=== PATIENT | female | born 2000 | race Caucasian/White ===

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

== ENCOUNTER 2020-03-29 17:57 | Emergency (ER) | payer BC, OTHER ==
--- NOTE | 2020-03-29 18:30 | ED Physician Documentation ---
History of Present Illness - Stated complaint Stated Complaint: LT ANKLE INJ - Chief complaint Chief Complaint: Trauma Ext - History obtained from History obtained from: Patient - Additonal information Additional information: 20-year-old woman, previously healthy presents with left ankle pain sudden onset at 8 AM after she twisted it and fell to the ground. Pain is aching constant mild/moderate, worsening since the time of injury, associated with swelling and worse with range of motion. Nonradiating. No sensory loss or weakness. She is ambulatory at present without difficulty. 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: None : None HEENT: Other Psych: Depression, Anxiety Musculoskeletal: None Derm: None - Past Surgical History Past Surgical History: No HEENT: Tonsil/Adenoidectomy - Present Medications Home Medications: Ambulatory Orders Medication Instructions Recorded Confirmed No Known Home Medications 03/29/20 03/29/20 - Allergies Allergies/Adverse Reactions: Allergies Allergy/AdvReac Type Severity Reaction Status Date / Time methadone Allergy Hives Verified 03/29/20 17:59 - Social History Does the pt smoke?: No Smoking Status: Never smoker Does the pt drink ETOH?: Yes Does the pt have substance abuse?: Yes - Immunizations Immunizations are current?: No - POLST Patient has POLST: No PD ED PE NORMAL - Vitals Vital signs reviewed: Yes - General General: Alert and oriented X 3, No acute distress - HEENT HEENT: Atraumatic, PERRL, EOMI - Derm Derm: Normal color, No rash, Other (+swelling to lateral malleolus) - Extremities Extremities: No deformity, Other (normal ROM L ankle. normal distal pulses and cap refill. normal sensation. mildly ttp of lateral malleolus. nontender to medial mall and 5th MT) - Neuro Neuro: No: No motor deficit, No sensory deficit Results - Vitals Vitals: Vital Signs - 24 hr 03/29/20 18:00 Temperature 36.9 C Heart Rate 112 H Respiratory 16 Rate Blood Pressure 130/74 O2 Saturation 98 Oxygen O2 Source Room air PD MEDICAL DECISION MAKING - ED course ED course: 20-year-old woman, previously healthy presents with left ankle pain that is low risk for fracture. Most likely that this is a mild sprain. Education given about conservative management at home. Will provide with crutches and a posterior splint and have her follow-up with orthopedics in 1 week if symptoms do not improve. Return precautions given. Departure - Departure Disposition: Home, Self Care Clinical Impression: Ankle pain, left Condition: Good Instructions: ED RICE Follow-Up: Dat Prather MD [Provider Admit Priv/Credential] - Comments: You have been seen in the emergency department for left ankle pain. Your x-rays do not show any obvious signs of fracture. It is likely that you have a mild sprain. Follow-up in orthopedics with 1 week if you do not have improvement in symptoms. Forms: Activity restrictions
--- NOTE | 2020-03-29 18:59 | XRAY Report ---
PROCEDURE: Ankle 3 View LT INDICATIONS: ankle pain TECHNIQUE: 3 views of the ankle were acquired. COMPARISON: None. FINDINGS: Bones: No fractures or dislocations. Ankle mortise is normally aligned. No suspicious bony lesions . Presumed bone island projects in the posterior calcaneus. Soft tissues: No tibiotalar joint effusion. Achilles tendon appears normal. IMPRESSION: Grossly unremarkable examination as above. If the patient's pain or other symptoms persi st, consider further evaluation with MRI. Reviewed by: Larry Beckett MD on 03/29/2020 6:58 PM PST Approved by: Larry Beckett MD on 03/29/2020 6:58 PM [facility] Station ID: [id number]
[2020-03-29 19:10] VITALS: BP 128/72
== END 2020-03-29 19:09 | disposition home or self-care (01) ==
LOC: ED 17:57
DX: M25.572 Pain in left ankle and joints of left foot (principal); X50.1XXA Overexertion from prolonged static or awkward postures, initial encounter; Y93.01 Activity, walking, marching and hiking
CPT/HCPCS: 99282; 99283

== ENCOUNTER 2020-05-02 08:07 | Outpatient (CLI) | payer BC, OTHER | END 2020-05-02 08:08 | disposition critical access hospital (66) | LOC: EMS 08:07 | PROVIDERS: ATTEND Emergency Medicine | DX: R40.20 Unspecified coma (principal) | CPT/HCPCS: A0425; A0427 ==

== ENCOUNTER 2020-05-02 08:23 | Observation (INO) | payer BC, OTHER ==
[2020-05-02] MEDS ORDERED: SODIUM CHLORIDE 0.9% 1,000 ML IV STA (08:30)
--- NOTE | 2020-05-02 08:30 | ED Physician Documentation ---
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 : None HEENT: Other Psych: Depression, Anxiety Musculoskeletal: None Derm: None - Past Surgical History Past Surgical History: No HEENT: Tonsil/Adenoidectomy - Present Medications Home Medications: Ambulatory Orders Medication Instructions Recorded Confirmed No Known Home Medications 03/29/20 03/29/20 - Allergies Allergies/Adverse Reactions: Allergies Allergy/AdvReac Type Severity Reaction Status Date / Time methadone Allergy Hives Verified 05/02/20 08:30 - Living Situation Living Situation: reports: With friend(s) Living Arrangement: reports: At home - Social History Does the pt smoke?: No Smoking Status: Never smoker Does the pt drink ETOH?: Yes Does the pt have substance abuse?: Yes - Immunizations Immunizations are current?: No - POLST Patient has POLST: No PD ED PE NORMAL - Vitals Vital signs reviewed: Yes - General General: Well developed/nourished. No: Alert and oriented X 3 (She is having spontaneous respirations. She opens her eyes to tactile stimulus but is not interactive. Does not follow commands. Eyes wide open with some nystagmus.) - HEENT HEENT: PERRL, EOMI (she is not following objects with gaze; has some rotary and twitching eye movements. ) - Neck Neck: Supple, no meningeal sign, No adenopathy - Cardiac Cardiac: No murmur. No: RRR (tachycardic but regular) - Respiratory Respiratory: Clear bilaterally - Abdomen Abdomen: Normal bowel sounds, Soft, Non distended, No organomegaly - Female Female : Deferred - Rectal Rectal: Deferred - Derm Derm: Normal color, Warm and dry - Extremities Extremities: No deformity, Normal ROM s pain, No edema - Neuro Neuro: No motor deficit (moving extremities without limitation. Nonpurposeful movements, leading to concern for IV safety. Side pads placed on gurney.), Normal speech Eye Opening: Spontaneous Motor: Withdraws to Pain Verbal: None GCS Score: 9 Results - Vitals Vitals: Vital Signs - 24 hr 05/02/20 05/02/20 05/02/20 08:30 09:04 09:30 Temperature 36.7 C Heart Rate 123 H 130 H 122 H Respiratory 16 25 H 21 Rate Blood Pressure 166/108 H 158/86 H 166/89 H O2 Saturation 98 99 96 05/02/20 05/02/20 10:00 10:30 Temperature Heart Rate 130 H 127 H Respiratory 24 25 H Rate Blood Pressure 162/94 H 153/92 H O2 Saturation 99 99 Oxygen O2 Source Nasal cannula Oxygen Flow Rate 2 - EKG (time done) 08:33 Rate: Rate (enter#) (127) Rhythm: Sinus tachycardia Emma: Normal Intervals: Normal NE QRS: Normal Ischemia: Normal ST segments, Non specific changes (laterally). No: ST elevation c/w ischemia, ST depression - Labs Labs: Laboratory Tests 05/02/20 05/02/20 05/02/20 08:43 08:43 08:43 WBC 7.9 RBC 4.57 Hgb 14.4 Hct 42.3 MCV 92.6 MCH 31.5 H MCHC 34.0 RDW 12.5 Plt Count 267 MPV 10.0 Neut # (Auto) 5.5 Lymph # (Auto) 1.7 Montgomery # (Auto) 0.6 Eos # (Auto) 0.0 Baso # (Auto) 0.0 Absolute Nucleated RBC 0.00 Nucleated RBC % 0.0 Sodium 144 Potassium 3.2 L Chloride 109 Carbon Dioxide 22 Anion Gap 13.0 BUN 11 Creatinine 0.7 Estimated GFR (MDRD) 107 Glucose 89 Calcium 9.0 Total Bilirubin 0.6 AST 23 ALT 19 Alkaline Phosphatase 67 Total Protein 7.5 Albumin 4.8 Globulin 2.7 Albumin/Globulin Ratio 1.8 Lipase 21 L TSH 3.19 Urine Color Urine Clarity Urine pH Ur Specific [place] Urine Protein Urine Glucose (UA) Urine Ketones Urine Occult Blood Urine Nitrite Urine Bilirubin Urine Urobilinogen Ur Leukocyte Esterase Ur Microscopic Review Urine Culture Comments Urine HCG, Qual Nasal Adenovirus (PCR) Nasal B. parapertussis DNA (PCR) Nasal Coronavir 229E PCR Nasal Coronavir HKU1 PCR Nasal Coronavir NL63 PCR Nasal Coronavir OC43 PCR Nasal Enterovir/Rhinovir PCR Nasal Influenza B PCR Nasal Influenza A PCR Nasal Parainfluen 1 PCR Nasal Parainfluen 2 PCR Nasal Parainfluen 3 PCR Nasal Parainfluen 4 PCR Nasal RSV (PCR) Nasal B.pertussis DNA PCR Nasal C.pneumoniae (PCR) Lam Human Metapneumo PCR Nasal M.pneumoniae (PCR) Nasal SARS-CoV-2 (PCR) Salicylates < 6.0 Urine Opiates Screen Ur Oxycodone Screen Urine Methadone Screen Ur Propoxyphene Screen Acetaminophen < 10 L Ur Barbiturates Screen Ur Tricyclics Screen Ur Phencyclidine Scrn Ur Amphetamine Screen U Methamphetamines Scrn U Benzodiazepines Scrn Urine Cocaine Screen U Cannabinoids Screen Ethyl Alcohol 227.9 05/02/20 05/02/20 08:48 09:12 WBC RBC Hgb Hct MCV MCH MCHC RDW Plt Count MPV Neut # (Auto) Lymph # (Auto) Montgomery # (Auto) Eos # (Auto) Baso # (Auto) Absolute Nucleated RBC Nucleated RBC % Sodium Potassium Chloride Carbon Dioxide Anion Gap BUN Creatinine Estimated GFR (MDRD) Glucose Calcium Total Bilirubin AST ALT Alkaline Phosphatase Total Protein Albumin Globulin Albumin/Globulin Ratio Lipase TSH Urine Color LT. YELLOW Urine Clarity CLEAR Urine pH 6.0 Ur Specific [place] >=1.030 H Urine Protein NEGATIVE Urine Glucose (UA) 500 H Urine Ketones NEGATIVE Urine Occult Blood TRACE-INTA Urine Nitrite NEGATIVE Urine Bilirubin NEGATIVE Urine Urobilinogen 0.2 (NORMAL) Ur Leukocyte Esterase NEGATIVE Ur Microscopic Review NOT INDICATED Urine Culture Comments NOT INDICATED Urine HCG, Qual NEGATIVE Nasal Adenovirus (PCR) NOT DETECTED Nasal B. parapertussis DNA (PCR) NOT DETECTED Nasal Coronavir 229E PCR NOT DETECTED Nasal Coronavir HKU1 PCR NOT DETECTED Nasal Coronavir NL63 PCR NOT DETECTED Nasal Coronavir OC43 PCR NOT DETECTED Nasal Enterovir/Rhinovir PCR NOT DETECTED Nasal Influenza B PCR NOT DETECTED Nasal Influenza A PCR NOT DETECTED Nasal Parainfluen 1 PCR NOT DETECTED Nasal Parainfluen 2 PCR NOT DETECTED Nasal Parainfluen 3 PCR NOT DETECTED Nasal Parainfluen 4 PCR NOT DETECTED Nasal RSV (PCR) NOT DETECTED Nasal B.pertussis DNA PCR NOT DETECTED Nasal C.pneumoniae (PCR) NOT DETECTED Lam Human Metapneumo PCR NOT DETECTED Nasal M.pneumoniae (PCR) NOT DETECTED Nasal SARS-CoV-2 (PCR) NOT DETECTED Salicylates Urine Opiates Screen NEGATIVE Ur Oxycodone Screen NEGATIVE Urine Methadone Screen NEGATIVE Ur Propoxyphene Screen NEGATIVE Acetaminophen Ur Barbiturates Screen NEGATIVE Ur Tricyclics Screen NEGATIVE Ur Phencyclidine Scrn NEGATIVE Ur Amphetamine Screen NEGATIVE U Methamphetamines Scrn NEGATIVE U Benzodiazepines Scrn NEGATIVE Urine Cocaine Screen NEGATIVE U Cannabinoids Screen POSITIVE H Ethyl Alcohol PD MEDICAL DECISION MAKING - ED course Complexity details: reviewed results, re-evaluated patient (Is still maintaining her airway. She is maintained data elevated head of bed position. She is less kinetic and seems to be calmer. She has been given just a small dose of Ativan.), considered differential, d/w health management consultant (ER nursing consulted with poison control who stated at least 8-hour treatment and observation. Since she is symptomatic to this degree its likely to be many hours to even a day or 2 for resolution.) ED course: Patient's airway ventilation and oxygenation remain stable. She does not seem at risk of respiratory failure at this point. She is still has significantly altered mentation consistent with the Benadryl overdose combine with alcohol. Anticipation would be a long time of at least likely 8 to 12 hours for improvement in this and may be longer. As such it is reasonable to have her in the hospital for further care and treatment. - Critical Care Time(min): 40 Time Includes: Direct patient care Data interpretation: Labs, Pulse ox, See progress note Procedures excluded from critical care time: EKG Departure - Departure Disposition: ED Place in Observation Clinical Impression: Alcohol intoxication Qualifiers: Complication of substance-induced condition: with unspecified complication Qualified Code(s): F10.929 - Alcohol use, unspecified with intoxication, unspecified Overdose of medication Qualifiers: Encounter type: initial encounter Injury intent: undetermined intent Qualified Code(s): T50.904A - Poisoning by unspecified drugs, medicaments and biological substances, undetermined, initial encounter Altered mental status Qualifiers: Altered mental status type: delirium Qualified Code(s): R41.0 - Disorientation, unspecified Anticholinergic syndrome Qualifiers: Encounter type: initial encounter Injury intent: undetermined intent Qualified Code(s): T44.3X4A - Poisoning by other parasympatholytics [anticholinergics and antimuscarinics] and spasmolytics, undetermined, initial encounter Condition: Stable Record reviewed to determine appropriate education?: Yes Discharge Date/Time: 05/02/20 11:27
[2020-05-02 08:46] LABS: BASOPHILS % (AUTO) 0.4 %; EOSINOPHILS % (AUTO) 0.3 %; HCT - HEMATOCRIT 42.3 % (37.0-47.0); HGB - HEMOGLOBIN 14.4 g/dL (12.0-16.0); LYMPHOCYTES # (AUTO) 1.7 10^3/uL (1.5-3.5); MEAN CORPUSCULAR HEMOGLOBIN 31.5 pg (27.0-31.0); MEAN CORPUSCULAR VOLUME 92.6 fL (81.0-99.0); MONOCYTES # (AUTO) 0.6 10^3/uL (0.0-1.0); MONOCYTES % (AUTO) 7.6 %; NEUTROPHILS # (AUTO) 5.5 10^3/uL (1.5-6.6); NEUTROPHILS % (AUTO) 70.3 %; PLT - PLATELET COUNT 267 10^3/uL (130-450); RED BLOOD COUNT 4.57 10^6/uL (4.20-5.40); RED CELL DISTRIBUTION WIDTH 12.5 % (12.0-15.0); WHITE BLOOD COUNT 7.9 x10^3/uL (4.8-10.8)
[2020-05-02 08:52] LABS: MUDS CUTOFF CONCENTRATIONS CUTOFF CONC BELOW:
[2020-05-02 08:56] LABS: BILIRUBIN,URINE NEGATIVE (NEGATIVE); GLUCOSE, URINE (UA) 500 mg/dL (NEGATIVE); KETONES,URINE (UA) NEGATIVE (NEGATIVE); LEUKOCYTE ESTERASE, URINE NEGATIVE (NEGATIVE); NITRITE,URINE NEGATIVE (NEGATIVE); OCCULT BLOOD,URINE TRACE-INTA (NEGATIVE); PROTEIN,URINE NEGATIVE (NEGATIVE); UROBILINOGEN,URINE 0.2 (NORMAL) E.U./dL (NORMAL)
[2020-05-02 08:58] LABS: CLARITY,URINE CLEAR (CLEAR); HCG UR QUAL NEGATIVE
[2020-05-02] MEDS ORDERED: LORazepam 2 MG/ML VIAL IVP STA (08:59)
[2020-05-02 09:04] LABS: ACETAMINOPHEN < 10 ug/mL (10-30); ALBUMIN 4.8 g/dL (3.2-5.5); ALBUMIN/GLOBULIN RATIO 1.8 (1.0-2.2); ALKALINE PHOSPHATASE 67 IU/L (42-121); ALT ALANINE AMINOTRANSFERASE 19 IU/L (10-60); AST ASPARTATE AMINOTRANSFERASE 23 IU/L (10-42); BILIRUBIN,TOTAL 0.6 mg/dL (0.2-1.0); BUN - BLOOD UREA NITROGEN 11 mg/dL (6-20); CARBON DIOXIDE - CO2 22 mmol/L (21-32); CHLORIDE 109 mmol/L (101-111); CREATININE 0.7 mg/dL (0.4-1.0); ETOH - ETHANOL 227.9 mg/dL; GFR - MDRD 107 (>89); GLUCOSE 89 mg/dL (70-100); LIPASE 21 U/L (22-51); POTASSIUM 3.2 mmol/L (3.5-5.0); SALICYLATE < 6.0 mg/dL; SODIUM 144 mmol/L (135-145); TOTAL PROTEIN 7.5 g/dL (6.7-8.2)
[2020-05-02 09:06] LABS: AMPHETAMINE SCREEN,URINE NEGATIVE (NEGATIVE); BARBITURATE SCREEN,UR NEGATIVE (NEGATIVE); BENZODIAZEPINES SCREEN, URINE NEGATIVE (NEGATIVE); COCAINE SCREEN URINE NEGATIVE (NEGATIVE); METHADONE SCREEN, URINE NEGATIVE (NEGATIVE); METHAMPHETAMINES SCREEN, URINE NEGATIVE (NEGATIVE); OPIATE SCREEN, URINE NEGATIVE (NEGATIVE); OXYCODONE SCREEN, URINE NEGATIVE (NEGATIVE); PROPOXYPHENE SCREEN, URINE NEGATIVE (NEGATIVE); THC CANNABINOID SCREEN, URINE POSITIVE (NEGATIVE); TRICYCLIC ANTIDEPRESSANT,URINE NEGATIVE (NEGATIVE)
[2020-05-02] MEDS ORDERED: LACTATED RINGERS 1,000 ML IV STA (09:38)
[2020-05-02 10:05] LABS: CORONAVIRUS 229E-RESP PCR NOT DETECTED; CORONAVIRUS HKU1-RESP PCR NOT DETECTED; CORONAVIRUS NL63-RESP PCR NOT DETECTED; CORONAVIRUS OC43-RESP PCR NOT DETECTED; HUMAN METAPNEUMOVIRUS NOT DETECTED; INFLUENZA A- RESP PCR PANEL NOT DETECTED; RHINOVIRUS/ENTEROVIRUS NOT DETECTED; SARS-CoV-2 -RESP PCR PANEL NOT DETECTED
[2020-05-02 10:06] LABS: B. PARAPERTUSSIS- RESP PCR PAN NOT DETECTED; B. PERTUSSIS- RESP PCR PANEL NOT DETECTED; C. PNEUMONIAE- RESP PCR PANEL NOT DETECTED; INFLUENZA B - RESP PCR PANEL NOT DETECTED; M. PNEUMONIAE- RESP PCR PANEL NOT DETECTED; PARAINFLUENZA VIRUS 1 NOT DETECTED; PARAINFLUENZA VIRUS 2 NOT DETECTED; PARAINFLUENZA VIRUS 3 NOT DETECTED; PARAINFLUENZA VIRUS 4 NOT DETECTED; RSV- RESP PCR PANEL NOT DETECTED
[2020-05-02] MEDS ORDERED: ONDANSETRON 4 MG/2 ML VIAL IVP PRN (10:36)
[2020-05-02] MEDS ORDERED: IBUPROFEN 400 MG TABLET PO PRN (10:36)
[2020-05-02] MEDS ORDERED: ONDANSETRON ODT 4 MG TABLET TL PRN (10:36)
[2020-05-02] MEDS ORDERED: SODIUM CHLORIDE FLUSH 0.9% 10 ML SYRINGE IVP PRN (10:36)
[2020-05-02] MEDS ORDERED: LACTATED RINGERS 1,000 ML IV SCH (11:00)
--- NOTE | 2020-05-02 12:35 | HISTORY & PHYSICAL EXAMINATION ---
Chief Complaint - Chief Complaint Chief Complaint: Benadryl Overdose History of Present Illness - Admitted From Admitted From:: ED - History Obtained From Records Reviewed: [facility] History obtained from: chart review Exam Limitations: Metabolic encephalopathy d/t anticholinergic effects of benadryl - History of Present Illness HPI Comment/Other: 20 year old female with unknown medical history but likely polycystic ovarian disease brought to the ED after friends called 911 when she would not wake up. They were reportedly drinking last night and she was last known normal when everyone went to bed. This morning her friends became concerned when she was found in the bathroom next to a bottle of almost empty Benadryl and would not wake up. Her BAL this morning was 233. It is unclear how much she drank or at what time she stopped drinking. On arrival to the ED she was somnolent but has become more awake. She is encephalopathic and not answering questions appropriately, not oriented to date or place. Unable to describe what happened but friends do not believe this was a suicide attempt. Pt was admitted under observation status per Poison Control, as it may take 1-2 days for the anticholinergic effects of the benadryl to clear from her system and the metabolic encephalopathy to clear. 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 Unclear employment. P rior records indicate she does not smoke tobacco products and has been drinking alcohol since at least 2014, unclear how much. Unclear if she has a hx of illicit drug use. Utox positive for Cannibus. - Substance History Use: Uses substance without health or social issues: Alcohol Abuse: Recurrent use of substance despite neg consequences: Alcohol (past records indicate hx alcohol abuse, unable to quantify with patient currently) - POLST Patient has POLST: No POLST Status: Full Code Meds/Allgy - Home Medications Home Medications: Ambulatory Orders Medication Instructions Recorded Confirmed No Known Home Medications 03/29/20 03/29/20 - Allergies Allergies/Adverse Reactions: Allergies Allergy/AdvReac Type Severity Reaction Status Date / Time methadone Allergy Hives Verified 05/02/20 08:30 Review of Systems - Other Findings Other Findings: Unable to obtain due to metabolic encephalopathy, altered mental status Prior Level of Functionality: Unable to obtain due to metabolic encephalopathy that will likely clear in 1-2 days; she is likely independent with iADLs and ADLS as she has been living independently with her friends per their report to the ED Exam - Vital Signs Reviewed Vital Signs: Yes Vital Signs: Vital Signs x48h Temp Pulse Resp BP Pulse Ox 05/02/20 11:24 36.5 C 134 H 32 H 165/90 H 98 05/02/20 11:00 132 H 28 H 146/100 H 99 05/02/20 10:30 127 H 25 H 153/92 H 99 05/02/20 10:00 130 H 24 162/94 H 99 05/02/20 09:30 122 H 21 166/89 H 96 05/02/20 09:04 130 H 25 H 158/86 H 99 05/02/20 08:30 36.7 C 123 H 16 166/108 H 98 - Physical Exam General Appearance: positive: Other (Obese woman. Restless, confused, whispering to herself while lying in bed) Eyes Bilateral: positive: No lid inflammation, Conjunctivae nml, No scleral icterus, Other (Dilated pupils bilaterally) ENT: positive: ENT inspection nml, No signs of dehydration, Other (hirsutism) Neck: positive: Nml inspection Respiratory: positive: Chest non-tender, No respiratory distress, Breath sounds nml Cardiovascular: positive: Regular rate & rhythm, No murmur, No gallop, Tachycardia Peripheral Pulses: positive: 2+ Abdomen: positive: Non-tender, No organomegaly, Nml bowel sounds, No distention Rectal: positive: Enlarged prostate Skin: positive: Color nml, No rash, Warm, Dry, Other (Tattoos on bilateral arms) Extremities: positive: Full ROM, Nml appearance, No pedal edema Neurologic/Psychiatric: positive: Disoriented to place, Disoriented to time, Other (whispering to herself, not answering questions appropriately) Sepsis Event Note (H) - Evaluation Current Stage of Sepsis: Ruled out Conclusion/Plan - Problem List (1) Overdose or poisoning by antihistamine or antiemetic drug Conclusion/Plan: Pt was found in the bathroom next to a near empty bottle of Benadryl after a night of drinking with friends. Exact quantity of Benadryl is unknown. Her friends do not believe this was a suicide attempt, we will assess when her metabolic encephalopathy clears. Poison Control recommended observation for at least 12 hours, however given the mixed use of the alcohol with the Benadryl it may take 1-2 days for the anticholinergic effects to clear from her system. Charcoal was not given in the ED due to concerns for her ability to protect her airway. She was admitted for observation while the medication clears. She is currently altered, disoriented and unable to answer ROS, hx, etc. 1. Telemetry 2. Non-violent restraints due to pulling at lines and fall risk, concern for her safety 3. IVF- D5 as she had a low glucose this morning Qualifiers: Encounter type: initial encounter Injury intent: undetermined intent Qualified Code(s): T45.0X4A - Poisoning by antiallergic and antiemetic drugs, undetermined, initial encounter (2) Metabolic encephalopathy Conclusion/Plan: Metabolic encephalopathy 2/2 anticholinergic effects of the Benadryl overdose. She is currently altered, disoriented, and at risk for falling and pulling lines. There is a sitter in her room and she is in non-violent restraints for her safety. These will be discontinued when her mental status clears and we can be assured of her safety. A message has been left with her parents' voicemail to follow up with her medical history, no return call received at this time. 1. 1:1 sitter for now 2. Non-violent restraints while fall and safety risk (3) Alcohol intoxication Conclusion/Plan: BAL this morning was 233. It is unclear at what time she stopped drinking or how much she drank. It is also unclear what she drank. On chart review she has been seen in the past for alcohol abuse in 2015, and EMR notes since indicate she continues to drink (though quantity unclear). Will have social work follow up when Pt is more clear and able to answer questions regarding the state of her use and if she has a desire to cut back or stop her drinking. It is unclear from the chart review if she has a hx of alcohol withdrawal, will have low threshhold for CIWA, though it may be difficult to tell if she is withdrawing from alcohol given that the anticholinergic effects of the Benadryl may mask this. 1. Social Work consult when appropriate 2. Seizure precautions - Lab Results Fish Bones: 05/02/20 08:43 05/02/20 08:43
[2020-05-02] MEDS: FOLIC ACID INJ 1 MG, THIAMINE INJ 100 MG, MAGNESIUM SULFATE 2 GM in SODIUM CHLORIDE 0.9... IV SCH (16:19)
[2020-05-02] MEDS: POTASSIUM CHLOR 10 MEQ/100 ML 10 MEQ/100 ML BAG IV SCH ×4 (16:35→20:25)
[2020-05-02] MEDS: SODIUM CHLORIDE FLUSH 0.9% 10 ML SYRINGE IVP SCH (17:38)
[2020-05-02] MEDS: LORazepam 2 MG/ML VIAL IVP PRN ×2 (19:32→22:21)
[2020-05-03] MEDS: LORazepam 2 MG/ML VIAL IVP PRN ×3 (00:27→05:08)
[2020-05-03] MEDS: SODIUM CHLORIDE FLUSH 0.9% 10 ML SYRINGE IVP SCH ×3 (00:31→17:08)
[2020-05-03 05:51] LABS: CALCIUM 8.8 mg/dL (8.5-10.3); CREATININE 0.7 mg/dL (0.4-1.0); POTASSIUM 3.6 mmol/L (3.5-5.0)
--- NOTE | 2020-05-03 10:11 | PROVIDER PROGRESS NOTE ---
Subjective - Prog Note Date Prog Note Date: 05/03/20 - Subjective Pt reports feeling: Improved Subjective: Slept well overnight, more oriented this morning. Knows where she is and why. Able to state the date. Still impulsive and startles easily. Denies pain, n/v. This is a discharge note; Pt rapidly recovered and was appropriate to discharge home this afternoon. After awaking near lunch time, she was A&O x4, slightly tremulous but reports this is baseline. VSS. Zhu removed, able to urinate appropriately. Showered. Tolerating regular diet, reports she is safe to return home. Objective - Vital Signs/Intake & Output Reviewed Vital Signs: Yes Vital Signs: Vital Signs x48h Temp Pulse Resp BP BP BP Pulse Ox 05/03/20 08:42 36.8 C 114 H 17 135/63 H 147/79 H 100 05/03/20 03:37 37.5 C 97 17 135/73 H 97 Intake & Output: Intake & Output 04/30/20 05/01/20 05/02/20 05/03/20 23:59 23:59 23:59 23:59 Intake Total 2400 1005.2 Output Total 1875 475 Balance 525 530.2 - Objective General Appearance: positive: Other (Obese female sleeping in bed, easily arousable though startles easily.) Eyes Bilateral: positive: Conjunctivae nml, No scleral icterus, Other (Pupils dilated bilaterally though improved from yesterday) ENT: positive: ENT inspection nml, No signs of dehydration, Other (hirsutism) Neck: positive: Nml inspection Respiratory: positive: Chest non-tender, No respiratory distress, Breath sounds nml Cardiovascular: positive: Regular rate & rhythm, Tachycardia Peripheral Pulses: 2+ Radial (R), 2+ Radial (L), 2+ Dorsalis pedis (R), 2+ Dorsalis pedis (L) Abdomen: positive: Non-tender, No organomegaly, Nml bowel sounds, No distention Skin: positive: Color nml, Other (tattoos on both arms) Extremities: positive: Non-tender, Full ROM, Nml appearance, No pedal edema Neurologic/Psychiatric: positive: Oriented x3, Other (impulsive, jerky movements) - Lab Results Fish Bones: 05/02/20 08:43 03/06/21 05:32 Other Labs: Lab Results x24hrs 05/03/20 Range/Units 05:32 Sodium 139 (135-145) mmol/L Potassium 3.6 (3.5-5.0) mmol/L Chloride 106 (101-111) mmol/L Carbon Dioxide 22 (21-32) mmol/L Anion Gap 11.0 (6-13) BUN 7 (6-20) mg/dL Creatinine 0.7 (0.4-1.0) mg/dL Estimated GFR (MDRD) 107 (>89) Glucose 77 (70-100) mg/dL Calcium 8.8 (8.5-10.3) mg/dL ABX Reporting Has patient been on IV antibiotics over the past 48 hours?: No Sepsis Event Note (H) - Evaluation Current Stage of Sepsis: Ruled out Assessment/Plan - Problem List (1) Overdose or poisoning by antihistamine or antiemetic drug Impression: Pt was found in the bathroom next to a near empty bottle of Benadryl after a night of drinking with friends. Exact quantity of Benadryl is unknown. Her friends do not believe this was a suicide attempt, we will assess when her metabolic encephalopathy clears. Poison Control recommended observation for at least 12 hours, however given the mixed use of the alcohol with the Benadryl it may take 1-2 days for the anticholinergic effects to clear from her system. Charcoal was not given in the ED due to concerns for her ability to protect her airway. She was admitted for observation while the medication clears. She is more oriented this morning, able to state where she is why. Tachycardic and slightly hypertensive, likely dry. Sinus rhythm on telemetry. Seen by social work, determined not to have suicidal ideation. 1. Stop Telemetry 2. Non-violent restraints due to pulling at lines and fall risk, concern for her safety; discontinued 3. Encourage fluids for tachycardia 4. IV ativan PRN agitation Q2H per poison control 5. Social work consult for evaluation of SI 6. Plan for discharge home after she urinates and tolerates a diet Qualifiers: Encounter type: initial encounter Injury intent: undetermined intent Qualified Code(s): T45.0X4A - Poisoning by antiallergic and antiemetic drugs, undetermined, initial encounter (2) Metabolic encephalopathy Impression: Resolved. Metabolic encephalopathy 2/2 anticholinergic effects of the Benadryl overdose. Her mentation has improved 1. 1:1 sitter discontinued 2. Non-violent restraints discontinued (3) Alcohol intoxication Impression: BAL on admission was 233. It is unclear at what time she stopped drinking or how much she drank. It is also unclear what she drank. On chart review she has been seen in the past for alcohol abuse in 2014, and EMR notes since indicate she continues to drink (though quantity unclear). Will have social work follow up when Pt is more clear and able to answer questions regarding the state of her use and if she has a desire to cut back or stop her drinking. It is unclear from the chart review if she has a hx of alcohol withdrawal, will have low threshhold for CIWA, though it may be difficult to tell if she is withdrawing from alcohol given that the anticholinergic effects of the Benadryl may mask this. IV Ativan ordered PRN Q2H agitation. 1. Social Work consult when appropriate 2. Seizure precautions Qualifiers: Complication of substance-induced condition: with unspecified complication Qualified Code(s): F10.929 - Alcohol use, unspecified with intoxication, unspecified
[2020-05-03] MEDS: FOLIC ACID INJ 1 MG, THIAMINE INJ 100 MG, MAGNESIUM SULFATE 2 GM in SODIUM CHLORIDE 0.9... IV SCH (14:41)
--- NOTE | 2020-05-03 17:23 | Discharge Plan ---
Discharge Plan Problem Reviewed?: Yes Disposition: Home, Self Care Condition: Stable Diet: Regular Activity Restrictions: Activity as Tolerated Shower Restrictions: No Driving Restrictions: No Health Concerns: You presented to the hospital with slurred speech, inability to walk, and is severe startle reflex. Your friends described you as drinking quite heavily with them. But within the space of 30 minutes to change from just being "normally drunk" to something else. They called an ambulance and they brought you to the hospital and we found you to have overdosed on Benadryl as well as having acute alcohol intoxication. Benadryl, and high doses, can cause severe heart arrhythmias. Poison control recommended an overnight stay to let the Benadryl get out of your system. They also recommended we watch your heart rhythm on telemetry. You gradually woke up. Your heart rhythm stayed normal. You are now stable to go home. Plan of Treatment: 1. You would like to return to work on Tuesday. Today is Tuesday. I will send you home with a note. 2. Do not drink anymore. At this point in your life, the alcohol abuse you hav e in addition to fatty liver can lead to cirrhosis. 3.. Consider seeing a therapist for short-term duration of counseling. Care Goals: To return to work, and resume normal activities No Smoking: If you smoke, Please STOP! Call for help.
--- NOTE | 2020-05-03 17:30 | PHARMACY PROGRESS NOTE ---
- Best Possible Medication History Admit Date and Time: 05/02/20 1036 Processed by: Pharmacy Medication History completed: Yes Patient Interview: Completed As the person ultimately responsible for medication therapy, providers are able to order a medication from an existing home medication list in [facility] via the "Reconcile Routine" prior to Confirmation of that medication by support merchandiser. Such practice is discouraged except when the physician, in their clinical chuy gment, deems that a medical need exists for a medication without regard to previous use.
[2020-05-03 20:28] VITALS: BP 124/69
== END 2020-05-03 20:45 | disposition home or self-care (01) ==
LOC: EDUNIT# → ED 08:23 → MS2 10:36
PROVIDERS: ADMIT Specialist; ATTEND Specialist
DX: T45.0X4A Poisoning by antiallergic and antiemetic drugs, undetermined, initial encounter (principal); F10.129 Alcohol abuse with intoxication, unspecified; Y90.7 Blood alcohol level of 200-239 mg/100 ml; G93.41 Metabolic encephalopathy; Z78.1 Physical restraint status; Z20.822 Contact with and (suspected) exposure to COVID-19; E66.9 Obesity, unspecified; Z68.34 Body mass index [BMI] 34.0-34.9, adult
CPT/HCPCS: 0202U; 36415; 51701; 80048; 80053; 80306; 80307; 80320; 80329; 81003; 81025; 83690; 84443; 85025; 93005; 96361; 96365; 96366; 96367; 96368; 96375; 96376; 99285; 99291; G0378; J2060; J3411; J7120; 81001; 87086

== ENCOUNTER 2020-09-01 05:34 | Outpatient (CLI) | payer BC, OTHER | END 2020-09-01 05:35 | disposition critical access hospital (66) | LOC: EMS 05:34 | DX: T42.4X2A Poisoning by benzodiazepines, intentional self-harm, initial encounter (principal) | CPT/HCPCS: A0425; A0427 ==

== ENCOUNTER 2020-09-01 05:48 | Emergency (ER) | payer BC, OTHER ==
[2020-09-01] MEDS ORDERED: CHARCOAL ACTIVATED 25 GM/120 ML BOTTLE PO STA (05:55)
[2020-09-01] MEDS ORDERED: SODIUM CHLORIDE 0.9% 1,000 ML IV STA (05:59)
[2020-09-01 06:14] LABS: BASOPHILS % (AUTO) 0.5 %; HCT - HEMATOCRIT 44.1 % (37.0-47.0); HGB - HEMOGLOBIN 15.1 g/dL (12.0-16.0); LYMPHOCYTES # (AUTO) 1.4 10^3/uL (1.5-3.5); LYMPHOCYTES % (AUTO) 21.6 %; MEAN CORPUSCULAR HEMOGLOBIN 31.1 pg (27.0-31.0); MEAN CORPUSCULAR HGB CONC 34.2 g/dL (32.0-36.0); MEAN CORPUSCULAR VOLUME 90.7 fL (81.0-99.0); MEAN PLATELET VOLUME 9.6 fL (7.9-10.8); MONOCYTES # (AUTO) 0.3 10^3/uL (0.0-1.0); MONOCYTES % (AUTO) 4.4 %; NEUTROPHILS # (AUTO) 4.8 10^3/uL (1.5-6.6); NEUTROPHILS % (AUTO) 73.3 %; PLT - PLATELET COUNT 315 10^3/uL (130-450); RED BLOOD COUNT 4.86 10^6/uL (4.20-5.40); RED CELL DISTRIBUTION WIDTH 12.7 % (12.0-15.0); WHITE BLOOD COUNT 6.5 x10^3/uL (4.8-10.8)
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
[2020-09-01 06:26] LABS: MUDS CUTOFF CONCENTRATIONS CUTOFF CONC BELOW:
[2020-09-01 06:27] LABS: BILIRUBIN,URINE NEGATIVE (NEGATIVE); GLUCOSE, URINE (UA) NEGATIVE (NEGATIVE); KETONES,URINE (UA) NEGATIVE (NEGATIVE); LEUKOCYTE ESTERASE, URINE NEGATIVE (NEGATIVE); NITRITE,URINE NEGATIVE (NEGATIVE); OCCULT BLOOD,URINE NEGATIVE (NEGATIVE); PROTEIN,URINE NEGATIVE (NEGATIVE); UROBILINOGEN,URINE 0.2 (NORMAL) E.U./dL (NORMAL)
[2020-09-01 06:28] LABS: ACETAMINOPHEN < 10 ug/mL (10-30); ALBUMIN 5.2 g/dL (3.2-5.5); ALKALINE PHOSPHATASE 76 IU/L (42-121); ALT ALANINE AMINOTRANSFERASE 19 IU/L (10-60); AST ASPARTATE AMINOTRANSFERASE 21 IU/L (10-42); BILIRUBIN,TOTAL 0.8 mg/dL (0.2-1.0); BUN - BLOOD UREA NITROGEN 6 mg/dL (6-20); CALCIUM 9.3 mg/dL (8.5-10.3); CARBON DIOXIDE - CO2 28 mmol/L (21-32); CHLORIDE 106 mmol/L (101-111); CREATININE 0.8 mg/dL (0.4-1.0); ETOH - ETHANOL 197.7 mg/dL; GFR - MDRD 91 (>89); GLUCOSE 110 mg/dL (70-100); LIPASE 21 U/L (22-51); POTASSIUM 4.2 mmol/L (3.5-5.0); SALICYLATE < 6.0 mg/dL; SODIUM 147 mmol/L (135-145); TOTAL PROTEIN 7.8 g/dL (6.7-8.2)
[2020-09-01 06:28] LABS: CLARITY,URINE CLEAR (CLEAR); HCG UR QUAL NEGATIVE
[2020-09-01 06:38] LABS: AMPHETAMINE SCREEN,URINE NEGATIVE (NEGATIVE); BARBITURATE SCREEN,UR NEGATIVE (NEGATIVE); BENZODIAZEPINES SCREEN, URINE NEGATIVE (NEGATIVE); COCAINE SCREEN URINE POSITIVE (NEGATIVE); METHADONE SCREEN, URINE NEGATIVE (NEGATIVE); METHAMPHETAMINES SCREEN, URINE NEGATIVE (NEGATIVE); OPIATE SCREEN, URINE NEGATIVE (NEGATIVE); OXYCODONE SCREEN, URINE NEGATIVE (NEGATIVE); PROPOXYPHENE SCREEN, URINE NEGATIVE (NEGATIVE); THC CANNABINOID SCREEN, URINE POSITIVE (NEGATIVE); TRICYCLIC ANTIDEPRESSANT,URINE NEGATIVE (NEGATIVE)
[2020-09-01] MEDS ORDERED: HALOPERIDOL 5 MG/ML VIAL IM STA (06:52)
[2020-09-01 07:22] LABS: B. PARAPERTUSSIS- RESP PCR PAN NOT DETECTED; B. PERTUSSIS- RESP PCR PANEL NOT DETECTED; C. PNEUMONIAE- RESP PCR PANEL NOT DETECTED; CORONAVIRUS 229E-RESP PCR NOT DETECTED; CORONAVIRUS HKU1-RESP PCR NOT DETECTED; CORONAVIRUS NL63-RESP PCR NOT DETECTED; CORONAVIRUS OC43-RESP PCR NOT DETECTED; HUMAN METAPNEUMOVIRUS NOT DETECTED; INFLUENZA A- RESP PCR PANEL NOT DETECTED; INFLUENZA B - RESP PCR PANEL NOT DETECTED; M. PNEUMONIAE- RESP PCR PANEL NOT DETECTED; PARAINFLUENZA VIRUS 1 NOT DETECTED; PARAINFLUENZA VIRUS 2 NOT DETECTED; PARAINFLUENZA VIRUS 3 NOT DETECTED; PARAINFLUENZA VIRUS 4 NOT DETECTED; RHINOVIRUS/ENTEROVIRUS NOT DETECTED; RSV- RESP PCR PANEL NOT DETECTED; SARS-CoV-2 -RESP PCR PANEL NOT DETECTED
[2020-09-01] MEDS ORDERED: OLANZapine ODT 5 MG TABLET TL ONE (07:34)
[2020-09-01] MEDS ORDERED: OLANZapine 10 MG VIAL IM STA (07:35)
[2020-09-01] MEDS ORDERED: KETAMINE 500 MG/10 ML VIAL IM STA ×2 (08:21→10:02)
[2020-09-01] MEDS ORDERED: MIDAZOLAM 10 MG/5 ML UDC PO STA (14:51)
[2020-09-02 08:57] VITALS: BP 97/48
--- NOTE | 2020-09-04 15:30 | ED Physician Documentation ---
ED Addendum - Addendum Addendum: 09/04/20 15:29 Patient detained by DCR to [facility]. Disposition transferred to psychiatric facility Condition stable
== END 2020-09-02 09:05 ==
LOC: EDUNIT# → ED 05:48
DX: T14.91XA Suicide attempt, initial encounter (principal); T42.4X2A Poisoning by benzodiazepines, intentional self-harm, initial encounter; Z78.1 Physical restraint status; Z20.822 Contact with and (suspected) exposure to COVID-19
CPT/HCPCS: 0202U; 36415; 51701; 80053; 80306; 80307; 80320; 80329; 81003; 81025; 83690; 85025; 93005; 96372; 99281; 99285; A9270; 81001; 87086

== ENCOUNTER 2021-12-04 05:11 | Outpatient (CLI) | payer BC | END 2021-12-04 05:12 | disposition critical access hospital (66) | LOC: EMS 05:11 | DX: R45.851 Suicidal ideations (principal); R44.0 Auditory hallucinations; Z72.820 Sleep deprivation | CPT/HCPCS: A0425; A0429 ==